=== PATIENT | male | born 1995 | race Caucasian/White ===

== ENCOUNTER 2023-01-07 14:03 | Outpatient (CLI) | payer OTHER, SELFPAY | END 2023-01-07 14:04 | disposition home or self-care (01) | PROVIDERS: PCP Family Medicine; Visit Provider Family Medicine | DX: Z00.00 Encounter for general adult medical examination without abnormal findings (principal); I10 Essential (primary) hypertension; E78.5 Hyperlipidemia, unspecified; E66.9 Obesity, unspecified; E88.81 Metabolic syndrome and other insulin resistance | CPT/HCPCS: 80048; 80061; 84439 ==